=== PATIENT | female | born 1985 | race American Indian/Alaskan Native ===

== ENCOUNTER 2017-06-07 17:26 | Outpatient (CLI) | payer MEDICAID ==
[2017-06-07 20:56] VITALS: BP 119/78
== END 2017-06-07 20:00 | disposition home or self-care (01) ==
LOC: TRG 17:26
PROVIDERS: ATTEND Obstetrics & Gynecology
DX: O47.1 False labor at or after 37 completed weeks of gestation (principal); Z3A.38 38 weeks gestation of pregnancy
CPT/HCPCS: 59025

== ENCOUNTER 2017-06-12 09:58 | Inpatient (IN) | payer MEDICAID ==
[2017-06-12] MEDS ORDERED: POLYCILLIN/NS 2 GM/100 ML 2 GM/100 ML BAG IV ONE (10:31)
[2017-06-12] MEDS ORDERED: NORMOSOL-R PH 7.4 1,000 ML IV ONE (10:31)
[2017-06-12] MEDS ORDERED: SUBLIMAZE IV PRN ×2 (10:36→10:46)
[2017-06-12] MEDS ORDERED: BRETHINE IVP PRN (10:36)
[2017-06-12] MEDS ORDERED: NARCAN 0.4 MG/1 ML IV PRN (10:36)
[2017-06-12] MEDS ORDERED: ePHEDrine SULFATE IV PRN (10:36)
[2017-06-12] MEDS ORDERED: BRETHINE SUB-Q PRN (10:36)
[2017-06-12] MEDS ORDERED: ZOFRAN IV PRN ×2 (10:36→15:18)
[2017-06-12] MEDS ORDERED: XYLOCAINE 2% INFILTRATI ONE (10:36)
--- NOTE | 2017-06-12 10:40 | History and Physical Report ---
History of Present Illness Date of examination: 06/12/17 Date of admission: 06/12/17 10:13 Chief complaint: Labor History of present illness: Pt is a 32yo BF EDC 06/15/17; EGA 39 4/7 weeks presents to L&D complaining of SROM clear fluid @ 1000 followed by RUC's q 3-4 mins. She received care at [facility] since 19 weeks. course was unremarkable. records are available and GBS is negative. Past History Past Medical History: no pertinent history Past Surgical History: no surgical history Family/Genetic History: none Social history: no significant social history, single - Obstetrical History Expected Date of Delivery: 06/15/17 Actual Gestation: 39 Week(s) 4 Day(s) : 7 Medications and Allergies Allergies Allergy/AdvReac Type Severity Reaction Status Date / Time No Known Allergies Allergy Verified 12/05/13 18:00 Home Medications Medication Instructions Recorded Confirmed Last Taken Type Ferrous Fumarate [Ferrocite] 324 mg PO DAILY 12/05/13 12/05/13 12/05/13 History Vit 108/Iron/Folic AC 1 each PO QDAY 12/05/13 12/05/13 12/05/13 History [ One Tablet] Valacyclovir HCl [Valacyclovir] 500 mg PO DAILY 12/05/13 12/05/13 12/05/13 History HYDROcodone/APAP 5-325 [[place] 1 each PO Q6H PRN #20 tablet 12/08/13 Unknown Rx 5-325 mg TAB] Ibuprofen [Motrin 600 MG tab] 600 mg PO Q6H 30 Days tablet 12/08/13 Unknown Rx Vit-Fe Fumar-FA [ 1 each PO QDAY #60 tablet 12/08/13 Unknown Rx Vitamin] Active Meds: Active Medications Butorphanol Tartrate (Stadol) 2 mg IV Q2H PRN PRN Reason: Pain , Severe (7-10) Ephedrine Sulfate (Ephedrine Sulfate) 10 mg IV Q2M PRN PRN Reason: Hypotension Fentanyl (Sublimaze) 100 mcg IV Q2H PRN PRN Reason: Labor Pain Ampicillin Sodium (Ampicillin/Ns 1 Gm/50 Ml) 1 gm in 50 mls @ 100 mls/hr IV Q4HR JAMEEL; Protocol Ampicillin Sodium (Polycillin/Ns 2 Gm/100 Ml) 2 gm in 100 mls @ 100 mls/hr IV ONCE ONE; Protocol Stop: 06/12/17 11:35 Parenteral Electrolytes (Normosol-R Ph 7.4) 1,000 mls @ 125 mls/hr IV DIRECT JAMEEL Lidocaine (Xylocaine 2%) 20 ml INFILTRATI ONCE ONE Stop: 06/12/17 10:37 Mineral Oil (Mineral Oil) 30 ml PO QHS PRN PRN Reason: Constipation Naloxone HCl (Narcan 0.4 Mg/1 Ml) 0.1 mg IV Q2MIN PRN PRN Reason: Res Rate </= 8 or 02 SAT < 92% Ondansetron HCl (Zofran) 4 mg IV Q8H PRN PRN Reason: Nausea And Vomiting Review of Systems All systems: negative - Physical Exam Breasts: Positive: deferred Cardiovascular: Regular rate Lungs: Positive: Clear to auscultation Abdomen: Positive: normal appearance Genitourinary (Female): Positive: normal external genitalia Vagina: Positive: normal moisture Uterus: Positive: enlarged Extremities: Positive: normal - Obstetrical FHR: category 1 Uterine Contraction Monitor Mode: External Cervical Dilatation: 5 Cervical Effacement Percentage: 70 station: -2 Uterine Contraction Pattern: Regular Uterine Tone Measurement Phase: Contraction Uterine Contraction Intensity: Moderate Results Result Diagrams: 06/12/17 10:30 All other labs normal. Assessment and Plan - Patient Problems (1) 39 weeks gestation of Onset Date: 06/12/17 Current Visit: Yes Status: Acute Plan to address problem: A: IUP @ 39 4/7 weeks in labor P: Admit to L&D for expectant vaginal delivery
[2017-06-12] MEDS ORDERED: NORMOSOL-R PH 7.4 1,000 ML IV SCH (11:00)
[2017-06-12] MEDS: STADOL IV PRN ×2 (11:00→13:04)
[2017-06-12] MEDS ORDERED: PITOCin/NS 30 UNIT/500ML 30 UNITS/500 ML BAG IV SCH ×2 (11:00)
[2017-06-12] MEDS ORDERED: POLYCILLIN/NS 2 GM/100 ML 2 GM/100 ML BAG IV NR (11:00)
[2017-06-12 11:10] LABS: Hematocrit 32.2 % (30.3-42.9); Hemoglobin 10.7 gm/dl (10.1-14.3); Mean Corpuscular HGB Conc 33 % (30-34); Mean Corpuscular Hemoglobin 31 pg (28-32); Mean Corpuscular Volume 95 fl (79-97); Platelet Count 250 K/mm3 (140-440); Red Cell Distribution Width 13.5 % (13.2-15.2)
[2017-06-12] MEDS ORDERED: NARCAN 2 MG/2 ML ONE (13:01)
[2017-06-12] MEDS ORDERED: AMPICILLIN/NS 1 GM/50 ML 1 GM/50 ML BAG IV SCH (15:00)
[2017-06-12] MEDS: PITOCin/NS 20 UNIT/1000ML DRIP 20 UNITS/1,000 ML BAG IV SCH ×2 (15:05→15:40)
--- NOTE | 2017-06-12 15:16 | Procedure Note ---
OB Delivery Note - Delivery Date of Delivery: 06/12/17 Surgeon: DAVI GARY Estimated blood loss: 100cc - Vaginal Delivery presentation: vertex Delivery position: OA Intrapartum events: none Delivery induction: none Delivery augmentation: rupture of membranes Delivery monitor: external FHT, external uterine Route of delivery: Delivery placenta: spontaneous Delivery cord: 3 umbilical vessels Episiotomy: none Delivery laceration: none Anesthesia: none Delivery comments: Infant delivered OA and placed on Mom's chest for [id number] bonding and delayed cord clamping. - A at 1 minute: 9 at 5 minutes: 9 Infant Gender: Female (3193gms)
[2017-06-12] MEDS ORDERED: DULCOLAX PR PRN (15:18)
[2017-06-12] MEDS ORDERED: PHENERGAN PR PRN (15:18)
[2017-06-12] MEDS ORDERED: MILK OF MAGNESIA PO PRN (15:18)
[2017-06-12] MEDS ORDERED: LANSINOH TP PRN (15:18)
[2017-06-12] MEDS ORDERED: TUCKS PAD TP PRN (15:18)
[2017-06-12] MEDS ORDERED: BENADRYL PO PRN (15:18)
[2017-06-12] MEDS ORDERED: PHENERGAN PO PRN (15:18)
[2017-06-12] MEDS ORDERED: NORCO 5/325 PO PRN (15:18)
[2017-06-12] MEDS ORDERED: TYLENOL PO PRN (15:18)
[2017-06-12] MEDS ORDERED: SODIUM CHLORIDE FLUSH SYRINGE 10 ML IV NR (16:00)
[2017-06-12] MEDS ORDERED: PITOCin/NS 20 UNIT/1000ML DRIP 20 UNITS/1,000 ML BAG IV SCH (16:00)
[2017-06-12] MEDS: MOTRIN PO SCH ×2 (16:35→22:49)
[2017-06-12] MEDS ORDERED: MINERAL OIL PO PRN (22:00)
[2017-06-12] MEDS: COLACE PO SCH (22:48)
[2017-06-12] MEDS: FEOSOL PO SCH (22:48)
[2017-06-13] MEDS ORDERED: M-M-R II VACCINE SUB-Q ONE (06:00)
[2017-06-13] MEDS ORDERED: BOOSTRIX IM ONE (06:00)
[2017-06-13 06:13] LABS: Hematocrit 28.2 % (30.3-42.9); Hemoglobin 9.4 gm/dl (10.1-14.3)
[2017-06-13] MEDS: MOTRIN PO SCH ×3 (06:34→23:37)
--- NOTE | 2017-06-13 09:17 | Progress Note ---
Assessment and Plan - Patient Problems (1) 39 weeks gestation of Onset Date: 06/12/17 Current Visit: Yes Status: Resolved (2) (normal spontaneous vaginal delivery) Onset Date: 06/13/17 Current Visit: No Status: Resolved Plan to address problem: A: S/P - PPD #1 Doing well Asymptomatic anemia - stable P: May go home tomorrow Subjective - Subjective Date of service: 06/13/17 Principal diagnosis: s/p - PPD #1 Interval history: Pt is feeling well without complaints. Bleeding improved. Patient reports: appetite normal, voiding normally, pain well controlled, flatus , ambulating normally, no dizzy ambulation, no nauseated [place]: doing well, nursing well, bottle feeding Objective - Vital Signs Latest vital signs: Vital Signs Temp Pulse Resp BP BP Pulse Ox 06/13/17 00:20 98.0 F 88 18 115/74 98 06/12/17 20:25 97.9 F 96 H 18 114/63 97 06/12/17 16:15 98.1 F 63 18 118/73 06/12/17 15:00 96.5 F L 06/12/17 14:40 96 H 131/86 80 L 06/12/17 14:39 86 88 06/12/17 14:35 83 100 06/12/17 14:30 78 99 06/12/17 14:25 83 96 06/12/17 14:20 77 97 06/12/17 14:15 77 95 06/12/17 14:14 72 94 06/12/17 14:10 74 100 06/12/17 14:09 79 134/84 06/12/17 14:05 69 95 06/12/17 14:00 81 92 06/12/17 13:55 75 96 06/12/17 13:53 76 94 06/12/17 13:50 70 98 06/12/17 13:45 69 97 06/12/17 13:40 78 94 06/12/17 13:38 75 141/91 06/12/17 13:35 77 96 06/12/17 13:30 81 95 06/12/17 13:25 70 94 06/12/17 13:20 76 99 06/12/17 13:18 70 94 06/12/17 13:15 73 98 06/12/17 13:08 70 125/76 06/12/17 12:40 65 134/92 06/12/17 11:38 70 132/80 06/12/17 11:09 81 143/92 Intake and Output 06/12/17 06/13/17 06/13/17 22:59 06:59 14:59 Intake Total 1792.917 360 Output Total 800 Balance 992.917 360 Intake: IV 1072.917 PITOCin/NS 20 UNIT/1000ML 1072.917 DRIP 20 units In 1,000 ml @ 125 mls/hr IV DIRECT JAMEEL Rx#:[id number] Oral 720 360 Output: Urine 800 Void 800 Other: Total, Intake Amount 240 120 Total, Output Amount 800 # Voids Void 1 1 Weight 90 kg Estimated Blood Loss 100 - Exam Breasts: Present: deferred Cardiovascular: Present: Regular rate Lungs: Present: Clear to auscultation Abdomen: Present: normal appearance, soft Uterus: Present: normal, firm, fundal height below umbilicus Extremities: Present: normal - Labs Labs: Abnormal lab results 06/12/17 06/13/17 Range/Units 10:30 05:59 RBC 3.40 L (3.65-5.03) M/mm3 Hgb 9.4 L (10.1-14.3) gm/dl Hct 28.2 L (30.3-42.9) % Laboratory Tests 06/12/17 06/12/17 06/12/17 10:30 10:30 10:30 WBC 8.5 RBC 3.40 L Hgb 10.7 Hct 32.2 MCV 95 MCH 31 MCHC 33 RDW 13.5 Plt Count 250 RPR Nonreactive Blood Type A POSITIVE Antibody Screen Negative 06/13/17 05:59 WBC RBC Hgb 9.4 L Hct 28.2 L MCV MCH MCHC RDW Plt Count RPR Blood Type Antibody Screen
--- NOTE | 2017-06-13 09:50 | Discharge Summary ---
Providers - Providers Date of Admission: 06/12/17 10:13 Date of discharge: 06/14/17 Attending physician: DAIV GARY Primary care physician: DAVI GARY Hospitalization Reason for admission: active labor, IUP at term Delivery: Episiotomy: none Laceration: none Other procedures: none complications: none Discharge diagnosis: IUP at term delivered [place] baby: female Hospital course: Unremarkable. Condition at discharge: Good Disposition: DC-01 TO HOME OR SELFCARE - Discharge Diagnoses (1) 39 weeks gestation of Status: Resolved (2) (normal spontaneous vaginal delivery) Status: Resolved Plan - Discharge Medications Prescriptions: Ferrous Sulfate [Feosol 325 MG tab] 325 mg PO BID #60 tablet Ibuprofen [Motrin 600 MG tab] 600 mg PO Q6H #30 tablet Vit-Fe Fumar-FA [ Vitamin] 1 each PO QDAY #30 tablet - Provider Discharge Summary Activity: routine, no sex for 6 weeks, no heavy lifting 4 weeks, no strenuous exercise Diet: routine Instructions: routine Additional instructions: [] Smoking cessation referral if applicable(refer to patient education folder for contact #) [] Refer to [facility] Booklet Call your doctor immediately for: * Fever > 100.5 * Heavy vaginal bleeding ( >1 pad per hour) * Severe persistent headache * Shortness of breath * Reddened, hot, painful area to leg or breast * Drainage or odor from incision. * Keep incision clean and dry at all times and follow doctor's instructions regarding bathing/showering - Follow up plan Follow up: DAVI GARY MD [Primary Care Provider] - 6 Weeks
[2017-06-13] MEDS: FEOSOL PO SCH ×2 (10:46→22:03)
[2017-06-13] MEDS: PRENATAL VITAMIN PO SCH (10:46)
[2017-06-13] MEDS: COLACE PO SCH ×2 (10:46→22:03)
[2017-06-14] MEDS: MOTRIN PO SCH (05:51)
[2017-06-14 08:49] VITALS: BP 116/79
[2017-06-14] MEDS: FEOSOL PO SCH (10:21)
[2017-06-14] MEDS: COLACE PO SCH (10:21)
[2017-06-14] MEDS: PRENATAL VITAMIN PO SCH (10:21)
== END 2017-06-14 11:00 | disposition home or self-care (01) | DRG 775 ==
LOC: TRG 09:58 → LD 10:13 → OB 16:03
PROVIDERS: ADMIT Obstetrics & Gynecology; ATTEND Obstetrics & Gynecology
PROC: 10E0XZZ Delivery of Products of Conception, External Approach (ICD-10-PCS; principal; 2017-06-12)
PROC: 3E0234Z Introduction of Serum, Toxoid and Vaccine into Muscle, Percutaneous Approach (ICD-10-PCS; 2017-06-12)
DX: O90.81 Anemia of the puerperium (principal); D64.9 Anemia, unspecified; Z3A.39 39 weeks gestation of pregnancy; Z37.0 Single live birth; Z23 Encounter for immunization
CPT/HCPCS: 36415; 85014; 85018; 85027; 86592; 86850; 86900; 86901; 90471; 90715; 99211; G0463; J0290; J0595; J2310; J2590

== ENCOUNTER 2020-01-26 16:23 | Emergency (ER) | payer MEDICAID | END 2020-01-26 17:36 | disposition left against medical advice (07) | LOC: ED 16:23 | DX: O20.8 Other hemorrhage in early pregnancy (principal); Z3A.00 Weeks of gestation of pregnancy not specified; Z53.21 Procedure and treatment not carried out due to patient leaving prior to being seen by health care provider ==